=== PATIENT | female | born 1985 | race Caucasian/White ===

== ENCOUNTER 2023-09-27 10:10 | Emergency (ER) | payer BC, OTHER ==
[~2023-09-27] VITALS: Ht 157.5 cm; Wt 48.1 kg
[2023-09-27] MEDS ORDERED: KETOROLAC TROMETHAMINE 60 MG INJ IM ONE (11:08)
[2023-09-27] MEDS: KETOROLAC TROMETHAMINE 60 MG INJ IM ONE (11:51)
[2023-09-27] MEDS ORDERED: IBUPROFEN 600 MG TABLET ONE (12:33)
[2023-09-27] MEDS: IBUPROFEN 600 MG TABLET PO ONE (12:53)
[2023-09-27] MEDS ORDERED: CYCLOBENZAPRINE HCL 10 MG TABLET ONE (12:54)
[2023-09-27] MEDS: CYCLOBENZAPRINE HCL 10 MG TABLET PO ONE (12:57)
[2023-09-27] MEDS ORDERED: TRAM50TA2 PO (14:50)
[2023-09-27] MEDS ORDERED: DICL100G31 TP (15:31)
[2023-09-27 16:06] VITALS: BP 113/69; O2SAT 100
== END 2023-09-27 15:30 | disposition home or self-care (01) ==
LOC: ER 10:10
DX: S16.1XXA Strain of muscle, fascia and tendon at neck level, initial encounter (principal); Z79.899 Other long term (current) drug therapy; V89.2XXA Person injured in unspecified motor-vehicle accident, traffic, initial encounter; Y93.89 Activity, other specified; Y92.89 Other specified places as the place of occurrence of the external cause; Y99.8 Other external cause status
CPT/HCPCS: 99284; 70450; 72050; J1885; A4606; A4663